=== PATIENT | female | born 1970 | race Caucasian/White ===

== ENCOUNTER 2022-11-18 09:33 | Emergency (ER) | payer OTHER ==
[~2022-11-18] VITALS: Ht 162.6 cm; Wt 75.0 kg
[2022-11-18] MEDS ORDERED: LIDOCAINE 1% 10 ML VIAL PERC ONE (11:30)
[2022-11-18] MEDS ORDERED: HYDROCODONE/ACETAMINOPHEN 5-325 MG TABLET PO ONE (11:45)
[2022-11-18] MEDS ORDERED: CLINDAMYCIN HCL 150 MG CAPSULE PO ONE (11:45)
[2022-11-18 12:09] VITALS: BP 141/75
[2022-11-18] MEDS ORDERED: CLIN-26 PO (12:09)
[2022-11-18] MEDS ORDERED: HYDR-4723 PO (12:09)
== END 2022-11-18 12:42 | disposition home or self-care (01) ==
LOC: EMS 09:33
DX: K04.7 Periapical abscess without sinus (principal); F17.210 Nicotine dependence, cigarettes, uncomplicated; F12.90 Cannabis use, unspecified, uncomplicated; Z90.49 Acquired absence of other specified parts of digestive tract; Z90.89 Acquired absence of other organs
CPT/HCPCS: 99284; 41800; J3490